=== PATIENT | female | born 1975 | race Caucasian/White ===

== ENCOUNTER 2020-11-29 16:47 | Emergency (ER) | payer OTHER ==
[2020-11-29] MEDS ORDERED: Adenocard IV 6 MG/2 ML IV ONE ×3 (16:51→17:00)
[2020-11-29] MEDS ORDERED: Sodium Chloride 0.9% 1000 ML 1,000 ML ONE (16:52)
[2020-11-29] MEDS ORDERED: Zofran 4 MG/2 ML VIAL IV ONE (17:00)
[2020-11-29] MEDS ORDERED: Zofran 4 MG/2 ML VIAL ONE (17:02)
[2020-11-29] MEDS ORDERED: Sodium Chloride 0.9% 1000 ML 1,000 ML IV STA (17:10)
[2020-11-29 17:25] LABS: Basophil (Absolute #) 0.05 (0-0.4); Eosinophil (Absolute #) 0.26 (0-0.5); Hemoglobin 13.4 gm/dl (12.0-16.0); Lymphocyte (Absolute #) 1.67 (1.0-4.6); Lymphocytes % 32.2 % (24.0-44.0); Mean Cell Volume 92.9 fl (78-100); Mean Corpuscular Hemoglobin 29.6 pg (26-32); Mean Corpuscular Hgb Concent. 31.9 g/dl (32-36); Mean Platelet Volume 9.7 fl (7.5-11.0); Monocytes % 11.6 % (0.0-12.0); Neutrophil % 50.2 % (36.0-66.0); Platelet Count 637 K/mm3 (150-450); Red Blood Count 4.52 M/mm3 (4.1-5.4); Red Cell Distribution Width 13.9 % (11.5-14.0); White Blood Count 5.2 K/mm3 (4.0-10.5)
--- NOTE | 2020-11-29 17:26 | ERPHSYRPT ---
- History of Present Illness Source: patient Exam Limitations: no limitations Patient Subjective Stated Complaint: SVT Triage Nursing Assessment: Patient brought back to ED via w/c and transferred to bed per self. Patient A+O X3. Patient's skin pink, warm and dry. Patient complains of being in SVT. Patient has hx of SVT. Patient states her HR got 209 and has been elevated for 15 min prior to coming into ED. Patient denies pain or discomfort but complains of slight SOB. Patient has recent colostomy placed on November 07 due to ruptured diverticolisis. Patient states her pain medication is interacting with her Cardizem and she has held it for 2 weeks. Timing/Duration: today, sudden, worse Severity: moderate Modifying Factors: Improves With: nothing Associated Symptoms: shortness of breath Hx Influenza Vaccination/Date Given: Yes Hx Pneumococcal Vaccination/Date Given: No Immunizations Up to Date: Yes <EMMANUEL PAEZ - Last Filed: 11/29/20 18:49> <NELSON GAINES - Last Filed: 11/29/20 20:46> - History of Present Illness Time Seen by Provider: 11/29/20 17:03 Physician History: 45 years old female with history of SVTs presented in the ER with sudden onset palpitations almost 15 minutes prior to arrival. Continuous without any significant aggravating or relieving factors. Minimal shortness of breath because of palpitations. Patient report her heart rate was in 200s prior to arrival and improved to 185 on presentation. She denies any fever or chills. Patient recently was taken off of Cardizem because of interaction with pain medications. She restarted taking Cardizem yesterday. Denies any fever chills or chest pain. Reports having similar symptoms couple of times in the past where she had to go to the ER to get adenosine to abort it. She is feeling pretty fatigued and tired. She recently have ruptured diverticulitis with temporary colostomy done. (EMMANUEL PAEZ) Allergies/Adverse Reactions: No Known Drug Allergies Allergy (Unverified 11/29/20 17:30) Home Medications: Diltiazem HCl [Diltiazem 12Hr ER] 1 cap PO DAILY 11/29/20 [History] Hydrocodone/Acetaminophen [Hydrocodone-Acetamin 7.5-325] 1 tab PO BID PRN 11/29/20 [History] Travel Risk - International Travel Have you traveled outside of the country in past 3 weeks: No - Coronavirus Screening Are you exhibiting any of the following symptoms?: No Close contact with a COVID-19 positive Pt in past 14-21 Days: No - Vaccine Status Have you recieved a Covid-19 vaccination: No <EMMANUEL PAEZ - Last Filed: 11/29/20 18:49> - Review of Systems Constitutional: No Symptoms, Fatigue Eyes: No Symptoms Ears, Nose, & Throat: No Symptoms Respiratory: No Symptoms, Dyspnea Cardiac: Palpitations Abdominal/Gastrointestinal: No Symptoms Genitourinary Symptoms: No Symptoms Musculoskeletal: No Symptoms Skin: No Symptoms Neurological: No Symptoms Psychological: Anxiety Endocrine: No Symptoms Hematologic/Lymphatic: No Symptoms Immunological/Allergic: No Symptoms <EMMANUEL PAEZ - Last Filed: 11/29/20 18:49> - Past Medical History Pertinent Past Medical History: Yes Neurological History: No Pertinent History ENT History: No Pertinent History Cardiac History: No Pertinent History Respiratory History: No Pertinent History Endocrine Medical History: No Pertinent History Musculoskeletal History: No Pertinent History GI Medical History: Diverticulosis History: No Pertinent History Psycho-Social History: No Pertinent History Female Reproductive Disorders: No Pertinent History Other Medical History: hx of SVT. Diverticulitist with perforation with colostomy placement on 11/07/2020 - Past Surgical History Past Surgical History: Yes Neuro Surgical History: No Pertinent History Cardiac: No Pertinent History Respiratory: No Pertinent History Gastrointestinal: Colon Resection Genitourinary: No Pertinent History Musculoskeletal: No Pertinent History Female Surgical History: No Pertinent History Other Surgical History: Diverticulitist with perforation with colostomy placement on 11/07/2020 - Social History Smoking Status: Former smoker Exposure to second hand smoke: Yes Drug Use: none Patient Lives Alone: No - Female History Hx Now: No <EMMANUEL PAEZ - Last Filed: 11/29/20 18:49> - Physical Exam General Appearance: mild distress, alert, anxiety Eye Exam: PERRL/EOMI, eyes nml inspection Ears, Nose, Throat Exam: normal ENT inspection, TMs normal, pharynx normal Neck Exam: normal inspection, non-tender, supple, full range of motion Respiratory Exam: normal breath sounds, lungs clear Cardiovascular Exam: normal heart sounds, tachycardia Gastrointestinal/Abdomen Exam: soft, normal bowel sounds, No tenderness Back Exam: normal inspection, normal range of motion Extremity Exam: normal inspection, normal range of motion, pelvis stable Neurologic Exam: alert, oriented x 3, cooperative, technical business analyst II-XII nml as tested Skin Exam: normal color SpO2 Interpretation: normal SpO2: 96 O2 Delivery: Room Air <EMMANUEL APEZ - Last Filed: 11/29/20 18:49> - Nursing Vital Signs Nursing Vital Signs: Initial Vital Signs Temperature 97.7 F 11/29/20 16:52 Pulse Rate 186 H 11/29/20 16:52 Respiratory Rate 21 11/29/20 16:52 Blood Pressure 93/79 11/29/20 16:52 O2 Sat by Pulse Oximetry 100 11/29/20 16:52 Pain Scale Pain Intensity 0 - Course Nursing assessment & vital signs reviewed: Yes EKG Interpreted by Me: RATE ([id number]), SVT, NORMAL AXIS, Non-specific ST Changes - Radiology Exams Chest X-ray Interpretation: Reviewed by me, Negative - CT Exams Other CT Interpretation: Other (Mall nonoccluding peripheral pulmonary embolus left upper lobe) Abdomen/Pelvis CT Interpretation: Other (No acute changes seen on the CT of the abdomen and pelvis with contrast other than surgical changes) <NELSON GAINES - Last Filed: 11/29/20 20:46> Ordered Tests: Active Orders 24 hr Category Date Time Status Medical Assistant Cardiology STAT Care 11/29/20 17:11 Active EKG-ER Only STAT Care 11/29/20 17:10 Active IV Insertion STAT Care 11/29/20 17:10 Active Pulse Oximetry (ED) STAT Care 11/29/20 17:10 Active ABDOMEN AND PELVIS W CONTRAST [CT] Routine Exams 11/29/20 19:05 Completed CHEST 1 VIEW (PORTABLE) Stat Exams 11/29/20 17:11 Completed CHEST WITH CONTRAST [CT] Routine Exams 11/29/20 19:05 Completed CBC W DIFF Stat Lab 11/29/20 16:58 Completed CK-Creatinine Phosphokinase Stat Lab 11/29/20 16:58 Completed CMP Stat Lab 11/29/20 16:58 Completed D-DIMER QUANTITATIVE Stat Lab 11/29/20 16:58 Completed Hepatic Function Panel Stat Lab 11/29/20 16:58 Completed NT PRO BNP Stat Lab 11/29/20 16:58 Completed PROTIME WITH INR Stat Lab 11/29/20 16:58 Completed PTT Stat Lab 11/29/20 16:58 Completed TROPONIN Q3H Lab 11/29/20 17:15 Completed TROPONIN Q3H Lab 11/29/20 20:15 Received TROPONIN Q3H Lab 11/29/20 23:15 Ordered TROPONIN Q3H Lab 11/30/20 02:15 Ordered TROPONIN Q3H Lab 11/30/20 05:15 Ordered Urine Triage Profile Stat Lab 11/29/20 16:58 Completed Medication Summary Discontinued Medications Generic Name Dose Route Start Last Admin Trade Name Freq PRN Reason Stop Dose Admin Adenosine Confirm 11/29/20 16:51 Adenocard Iv 6 Mg/2 Ml Administered 11/29/20 16:52 Dose 6 mg IV .STK-MED ONE Adenosine Confirm 11/29/20 16:52 Adenocard Iv 6 Mg/2 Ml Administered 11/29/20 16:53 Dose 12 mg IV .STK-MED ONE Adenosine 6 mg 11/29/20 17:00 11/29/20 17:05 Adenocard Iv 6 Mg/2 Ml IV 11/29/20 17:01 6 mg STAT ONE Administration Enoxaparin Sodium 80 mg 11/29/20 20:37 Enoxaparin Sodium SQ 11/29/20 20:38 1XONLY ONE Enoxaparin Sodium Confirm 11/29/20 20:39 Enoxaparin Sodium Administered 11/29/20 20:40 Dose 80 mg SQ .STK-MED ONE Sodium Chloride Confirm 11/29/20 16:52 Sodium Chloride 0.9% 1000 Ml Administered 11/29/20 16:53 Dose 1,000 mls @ ud .ROUTE .STK-MED ONE Sodium Chloride 1,000 mls @ 999 mls/hr 11/29/20 17:10 11/29/20 18:28 Sodium Chloride 0.9% 1000 Ml IV 11/29/20 18:10 Infused .Q1H1M STA Infusion Ondansetron HCl Confirm 11/29/20 17:02 Zofran 4 Mg/2 Ml Vial Administered 11/29/20 17:03 Dose 4 mg .ROUTE .STK-MED ONE Ondansetron HCl 4 mg 11/29/20 17:00 11/29/20 17:00 Zofran 4 Mg/2 Ml Vial IV 04/23/21 17:01 4 mg STAT ONE Administration Lab/Rad Data: Laboratory Result Diagrams 11/29/20 16:58 11/29/20 16:58 Laboratory Results 11/29/20 11/29/20 11/29/20 Range/Units 17:15 16:58 16:58 WBC (4.0-10.5) K/mm3 RBC (4.1-5.4) M/mm3 Hgb (12.0-16.0) gm/dl Hct (35-47) % MCV (78-100) fl MCH (26-32) pg MCHC (32-36) g/dl RDW (11.5-14.0) % Plt Count (150-450) K/mm3 MPV (7.5-11.0) fl Gran % (36.0-66.0) % Eos # (Auto) (0-0.5) Absolute Lymphs (auto) (1.0-4.6) Absolute Monos (auto) (0.0-1.3) Lymphocytes % (24.0-44.0) % Monocytes % (0.0-12.0) % Eosinophils % (0.00-5.0) % Basophils % (0.0-0.4) % Absolute Granulocytes (1.4-6.9) Basophils # (0-0.4) PT 11.8 (9.95-12.35) SECONDS INR 1.04 (0.8-3.0) APTT 30.5 (25.3-37.0) SECONDS D-Dimer 1001 H* (215-500) ng/mL Sodium (137-145) mmol/L Potassium (3.5-5.1) mmol/L Chloride (98-107) mmol/L Carbon Dioxide (22-30) mmol/L Anion Gap (5-15) MEQ/L BUN (7-17) mg/dL Creatinine (0.52-1.04) mg/dL Estimated GFR ML/MIN Glucose (74-106) mg/dL Calcium (8.4-10.2) mg/dL Total Bilirubin (0.2-1.3) mg/dL Direct Bilirubin (0.0-0.4) mg/dL AST (14-36) U/L ALT (0-35) U/L Alkaline Phosphatase (38-126) U/L Creatine Kinase (30-135) U/L Troponin I < 0.012 (0.000-0.034) ng/mL NT-Pro-B Natriuret Pep (0-450) pg/mL Serum Total Protein (6.3-8.2) g/dL Albumin (3.5-5.0) g/dL Urine Opiates Level POSITIVE (NEGATIVE) Ur Methadone NEGATIVE (NEGATIVE) Urine Barbiturates NEGATIVE (NEGATIVE) Ur Phencyclidine (PCP) NEGATIVE (NEGATIVE) Urine Amphetamine NEGATIVE (NEGATIVE) U Benzodiazepine Level NEGATIVE (NEGATIVE) Urine Cocaine NEGATIVE (NEGATIVE) Urine Marijuana (THC) NEGATIVE (NEGATIVE) 11/29/20 11/29/20 Range/Units 16:58 16:58 WBC 5.2 (4.0-10.5) K/mm3 RBC 4.52 (4.1-5.4) M/mm3 Hgb 13.4 (12.0-16.0) gm/dl Hct 42.0 (35-47) % MCV 92.9 (78-100) fl MCH 29.6 (26-32) pg MCHC 31.9 L (32-36) g/dl RDW 13.9 (11.5-14.0) % Plt Count 637 H (150-450) K/mm3 MPV 9.7 (7.5-11.0) fl Gran % 50.2 (36.0-66.0) % Eos # (Auto) 0.26 (0-0.5) Absolute Lymphs (auto) 1.67 (1.0-4.6) Absolute Monos (auto) 0.60 (0.0-1.3) Lymphocytes % 32.2 (24.0-44.0) % Monocytes % 11.6 (0.0-12.0) % Eosinophils % 5.0 (0.00-5.0) % Basophils % 1.0 (0.0-0.4) % Absolute Granulocytes 2.60 (1.4-6.9) Basophils # 0.05 (0-0.4) PT (9.95-12.35) SECONDS INR (0.8-3.0) APTT (25.3-37.0) SECONDS D-Dimer (215-500) ng/mL Sodium 140 (137-145) mmol/L Potassium 3.9 (3.5-5.1) mmol/L Chloride 100 (98-107) mmol/L Carbon Dioxide 27 (22-30) mmol/L Anion Gap 16.5 H (5-15) MEQ/L BUN 9 (7-17) mg/dL Creatinine 0.58 (0.52-1.04) mg/dL Estimated GFR > 60.0 ML/MIN Glucose 100 (74-106) mg/dL Calcium 10.3 H (8.4-10.2) mg/dL Total Bilirubin 0.40 (0.2-1.3) mg/dL Direct Bilirubin 0.2 (0.0-0.4) mg/dL AST 47 H (14-36) U/L ALT 45 H (0-35) U/L Alkaline Phosphatase 96 (38-126) U/L Creatine Kinase 31 (30-135) U/L Troponin I (0.000-0.034) ng/mL NT-Pro-B Natriuret Pep 22.4 (0-450) pg/mL Serum Total Protein 8.2 (6.3-8.2) g/dL Albumin 4.8 (3.5-5.0) g/dL Urine Opiates Level (NEGATIVE) Ur Methadone (NEGATIVE) Urine Barbiturates (NEGATIVE) Ur Phencyclidine (PCP) (NEGATIVE) Urine Amphetamine (NEGATIVE) U Benzodiazepine Level (NEGATIVE) Urine Cocaine (NEGATIVE) Urine Marijuana (THC) (NEGATIVE) <EMMANUEL PAEZ - Last Filed: 11/29/20 18:49> - Progress Progress: improved <NELSON GAINES - Last Filed: 11/29/20 20:46> - Progress Progress Note: 11/29/20 18:49 She is given adenosine 6 mg once since she has improvement in heart rate to upper 90s and low 100. Her blood pressure also improved. Repeat EKG showed sinus tach. No acute ST elevation. Work-up is pending, care is transferred to Dr. Gaines at shift change for final disposition. (EMMANUEL PAEZ) 11/29/20 20:43 We had a long discussion with Ms. Espinoza about her SVT and her subsequent finding of a nonocclusive small pulmonary embolus. We elected to treat her with Lovenox and then she can start Eliquis in the morning she is to contact her surgeon and primary care in the a.m. to see if they are in agreement with her current therapy. (NELSON GAINES) <EMMANUEL PAEZ - Last Filed: 11/29/20 18:49> - Departure Departure Disposition: Home Critical Care Time: No <NELSON GAINES - Last Filed: 11/29/20 20:46> - Departure Clinical Impression: SVT (supraventricular tachycardia), Pulmonary emboli Condition: Stable Referrals: ROGER ESCALERA [NON-STAFF PHY W/O PRIVILEGES] - Additional Instructions: Contact your surgeon and your primary care in the a.m. and tell them of your findings and our treatment to see if they concur. Prescriptions: Apixaban [Eliquis] 5 mg PO BID 30 Days #60 tablet
[2020-11-29 17:30] LABS: INR 1.04 (0.8-3.0); PROTIME 11.8 SECONDS (9.95-12.35)
[2020-11-29 17:33] LABS: PTT 30.5 SECONDS (25.3-37.0)
[2020-11-29 17:45] LABS: ALBUMIN 4.8 g/dL (3.5-5.0); ALKALINE PHOSPHATASE 96 U/L (38-126); ANION GAP 16.5 MEQ/L (5-15); BLOOD UREA NITROGEN 9 mg/dL (7-17); CHLORIDE 100 mmol/L (98-107); CK-Creatinine Phosphokinase 31 U/L (30-135); Calcium 10.3 mg/dL (8.4-10.2); Carbon Dioxide 27 mmol/L (22-30); Creatinine 1 0.58 mg/dL (0.52-1.04); Direct Bilirubin 0.2 mg/dL (0.0-0.4); EST GLOMERULAR FILTRATION RATE > 60.0 ML/MIN; Glucose 100 mg/dL (74-106); NT PRO BNP 22.4 pg/mL (0-450); Potassium 3.9 mmol/L (3.5-5.1); SGOT/AST 47 U/L (14-36); SGPT/ALT 45 U/L (0-35); SODIUM 140 mmol/L (137-145); Total Protein 8.2 g/dL (6.3-8.2)
[2020-11-29 17:56] LABS: Amphetamine,Urine NEGATIVE (NEGATIVE); Barbiturate,Urine NEGATIVE (NEGATIVE); Benzodiazepine,Urine NEGATIVE (NEGATIVE); Cocaine,Urine NEGATIVE (NEGATIVE); Methadone,Urine NEGATIVE (NEGATIVE); Opiate,Urine POSITIVE (NEGATIVE); PCP,Urine NEGATIVE (NEGATIVE); THC,Urine NEGATIVE (NEGATIVE)
--- NOTE | 2020-11-29 20:00 | XRAY ---
Indication: SVT. Elevated d-dimer. Multiple contiguous axial images obtained through the chest using 80 cc Isovue 370 contrast and PE protocol. Comparison: None There is good opacification of the pulmonary arteries to include the lobar and segmental branches. Tiny nonoccluding pulmonary embolus right upper lobe anterior segmental branch. Heart is not enlarged. Aorta is normal in course and caliber. No pathologic mediastinal/hilar lymphadenopathy. Lungs demonstrate mild bilateral dependent atelectasis and mild bilateral lower lobe subsegmental atelectasis/scarring. No suspicious pulmonary mass, infiltrate, or effusion. Bony thorax intact. CT abdomen/pelvis reported separately. Impression: Tiny nonoccluding right upper lobe pulmonary embolus. Bibasilar subsegmental atelectasis/scarring. Remaining CT chest with contrast exam is negative.
--- NOTE | 2020-11-29 20:01 | XRAY ---
Indication: Abdomen pain. History diverticulitis with colon resection. Multiple contiguous axial images obtained through the abdomen and pelvis using 80 cc Isovue 370 contrast. Comparison: None CT chest reported separately. Noncontrasted stomach and bowel loops appear nonobstructed. Small descending duodenal diverticulum. Scattered descending colon diverticulosis with minimal pericolonic stranding favoring diverticulitis. Tiny left colic gutter and pelvic free fluid presumed reactive. There has been sigmoid resection with diverting left lower quadrant colostomy. No free air. Diffuse fatty hepatomegaly measuring 19 cm. Remaining gallbladder, pancreas, spleen, adrenal glands, kidneys, ureters, bladder, uterus, and aorta are unremarkable. No pathologic retroperitoneal lymphadenopathy. Osseous structures intact with bilateral L5 spondylolysis and 9 mm spondylolisthesis. Impression: 1. Descending colonic diverticulitis with tiny free fluid. 2. Status post sigmoid resection with diverting left lower quadrant colostomy. 3. Incidental duodenal diverticulum, fatty hepatomegaly, and L5 spondylolysis with grade 2 spondylolisthesis.
--- NOTE | 2020-11-29 20:01 | XRAY ---
Indication: Tachycardia. Comparison: None Portable chest demonstrates normal heart and lungs. Bony thorax intact.
[2020-11-29] MEDS ORDERED: ENOXAPARIN SODIUM SQ ONE ×2 (20:37→20:39)
[2020-11-29 20:52] VITALS: BP 127/85; PULSE 93; O2SAT 99
== END 2020-11-29 20:58 | disposition home or self-care (01) ==
LOC: ED 16:47
DX: I47.1 Supraventricular tachycardia (principal); I26.99 Other pulmonary embolism without acute cor pulmonale
CPT/HCPCS: 36000; 36415; 71045; 71260; 74177; 80053; 80076; 80307; 82550; 83880; 84484; 85025; 85379; 85610; 85730; 93005; 93041; 94760; 96372; 96374; 96375; 99284; J0153; J1650; J2405

== ENCOUNTER 2020-12-04 18:02 | Emergency (ER) | payer OTHER ==
[2020-12-04] MEDS ORDERED: Adenocard IV 6 MG/2 ML IV ONE ×2 (18:12→18:13)
[2020-12-04] MEDS ORDERED: Sodium Chloride 0.9% 1000 ML 1,000 ML ONE ×2 (18:13→19:25)
[2020-12-04] MEDS ORDERED: Zofran 4 MG/2 ML VIAL ONE (18:14)
[2020-12-04] MEDS ORDERED: BABY ASPIRIN 81 MG CHEW PO ONE (18:36)
[2020-12-04] MEDS ORDERED: Sodium Chloride 0.9% 1000 ML 1,000 ML IV STA (18:36)
--- NOTE | 2020-12-04 18:36 | ERPHSYRPT ---
- History of Present Illness Time Seen by Provider: 12/04/20 18:03 Source: patient Exam Limitations: no limitations Patient Subjective Stated Complaint: SVT Triage Nursing Assessment: Patient brought back to ED via w/c and transferred self to bed. Patient A+O X 3. Patient's skin flushed and diaphoretic. Patient states she was sitting at home when her HR got to high to 194 and stayed for 30 min before coming into ED. Patient complains of dizziness and SOB. Patient denies pain or discomfort. Physician History: 45 years old female with a history of SVT, recent nonoccluding pulmonary emboli, on Eliquis, presented to the ER with chief complaint of sudden onset palpitations almost 30 minutes prior to arrival with a heart rate in 190s. Patient reports feeling dizzy and lightheaded with palpitations. Denies any ch est pain tightness pressure. Patient was seen here by me few days ago with similar symptoms which responded to adenosine. Patient is not taking any antiarrhythmic but Cardizem only. Denies any recent fever chills cough or shortness of breath. Timing/Duration: today, sudden Severity: moderate Modifying Factors: Worsens With: movement Associated Symptoms: denies symptoms Allergies/Adverse Reactions: No Known Drug Allergies Allergy (Verified 12/04/20 18:10) Home Medications: Diltiazem HCl [Diltiazem 12Hr ER] 1 cap PO DAILY 11/29/20 [History] Hydrocodone/Acetaminophen [Hydrocodone-Acetamin 7.5-325] 1 tab PO BID PRN 11/29/20 [History] Apixaban [Eliquis] 2.5 mg PO DAILY 12/04/20 [History] Hx Influenza Vaccination/Date Given: Yes Hx Pneumococcal Vaccination/Date Given: No Immunizations Up to Date: Yes Travel Risk - International Travel Have you traveled outside of the country in past 3 weeks: No - Coronavirus Screening Are you exhibiting any of the following symptoms?: No Close contact with a COVID-19 positive Pt in past 14-21 Days: No - Vaccine Status Have you recieved a Covid-19 vaccination: No - Review of Systems Constitutional: Fatigue Eyes: No Symptoms Ears, Nose, & Throat: No Symptoms Respiratory: No Symptoms Cardiac: Palpitations Abdominal/Gastrointestinal: No Symptoms Genitourinary Symptoms: No Symptoms Musculoskeletal: No Symptoms Skin: No Symptoms Neurological: Dizziness Psychological: No Symptoms Endocrine: No Symptoms Hematologic/Lymphatic: No Symptoms Immunological/Allergic: No Symptoms - Past Medical History Pertinent Past Medical History: Yes Neurological History: No Pertinent History ENT History: No Pertinent History Cardiac History: No Pertinent History Respiratory History: No Pertinent History Endocrine Medical History: No Pertinent History Musculoskeletal History: No Pertinent History GI Medical History: Diverticulosis History: No Pertinent History Psycho-Social History: No Pertinent History Female Reproductive Disorders: No Pertinent History Other Medical History: hx of SVT. Diverticulitist with perforation with colostomy placement on 11/07/2020 - Past Surgical History Past Surgical History: Yes Neuro Surgical History: No Pertinent History Cardiac: No Pertinent History Respiratory: No Pertinent History Gastrointestinal: Colon Resection Genitourinary: No Pertinent History Musculoskeletal: No Pertinent History Female Surgical History: No Pertinent History Other Surgical History: Diverticulitist with perforation with colostomy placement on 11/07/2020 - Social History Smoking Status: Former smoker Exposure to second hand smoke: Yes Drug Use: none Patient Lives Alone: No - Female History Hx Now: No - Nursing Vital Signs Nursing Vital Signs: Initial Vital Signs Pulse Rate 182 H 12/04/20 18:15 Respiratory Rate 33 H 12/04/20 18:15 Blood Pressure 98/72 12/04/20 18:15 O2 Sat by Pulse Oximetry 100 12/04/20 18:15 Pain Scale Pain Intensity 0 - Physical Exam General Appearance: no apparent distress, alert, anxiety Eye Exam: PERRL/EOMI, eyes nml inspection Ears, Nose, Throat Exam: normal ENT inspection, TMs normal, pharynx normal Neck Exam: normal inspection, non-tender, supple Respiratory Exam: normal breath sounds, lungs clear Cardiovascular Exam: normal heart sounds, tachycardia Gastrointestinal/Abdomen Exam: soft, normal bowel sounds, No tenderness Back Exam: normal inspection, normal range of motion Extremity Exam: normal inspection, normal range of motion, pelvis stable Neurologic Exam: alert, oriented x 3, cooperative, advertising sales consultant II-XII nml as tested, nml cerebellar function Skin Exam: normal color SpO2 Interpretation: normal SpO2: 100 O2 Delivery: Room Air - Course EKG Interpreted by Me: RATE ([id number]), SVT, NORMAL AXIS, NORMAL INTERVALS, Non- specific ST Changes (Second EKG time 1820. Rate 92. Sinus rhythm Driscoll normal. Intervals normal. Normal QRS. Third EKG time 1931. Rate 89 sinus rhythm. Normal axis. No ST elevations. Normal QRS.) Ordered Tests: Active Orders 24 hr Category Date Time Status Casino Change Attendant STAT Care 12/04/20 18:37 Active EKG-ER Only STAT Care 12/04/20 18:36 Active IV Insertion STAT Care 12/04/20 18:36 Active CHEST 1 VIEW (PORTABLE) Stat Exams 12/04/20 18:37 Taken CBC W DIFF Stat Lab 12/04/20 18:54 Completed CMP Stat Lab 12/04/20 18:54 Completed MAG [MAGNESIUM] Stat Lab 12/04/20 18:54 Completed TROPONIN Q3H Lab 12/04/20 18:54 Completed TROPONIN Q3H Lab 12/05/20 00:45 Ordered TROPONIN Q3H Lab 12/05/20 03:45 Ordered TROPONIN Q3H Lab 12/05/20 06:45 Ordered Medication Summary Discontinued Medications Generic Name Dose Route Start Last Admin Trade Name Freq PRN Reason Stop Dose Admin Adenosine Confirm 12/04/20 18:12 Adenocard Iv 6 Mg/2 Ml Administered 12/04/20 18:13 Dose 6 mg IV .STK-MED ONE Adenosine Confirm 12/04/20 18:13 Adenocard Iv 6 Mg/2 Ml Administered 12/04/20 18:14 Dose 12 mg IV .STK-MED ONE Aspirin 324 mg 12/04/20 18:36 12/04/20 19:26 Baby Aspirin 81 Mg Chew PO 12/04/20 18:37 324 mg STAT ONE Administration Aspirin Confirm 12/04/20 19:25 Baby Aspirin 81 Mg Chew Administered 12/04/20 19:26 Dose 324 mg .ROUTE .STK-MED ONE Sodium Chloride Confirm 12/04/20 18:13 Sodium Chloride 0.9% 1000 Ml Administered 12/04/20 18:14 Dose 1,000 mls @ ud .ROUTE .STK-MED ONE Sodium Chloride 1,000 mls @ 999 mls/hr 12/04/20 18:36 12/04/20 20:53 Sodium Chloride 0.9% 1000 Ml IV 12/04/20 19:36 Infused .Q1H1M STA Infusion Sodium Chloride Confirm 12/04/20 19:25 Sodium Chloride 0.9% 1000 Ml Administered 12/04/20 19:26 Dose 1,000 mls @ ud .ROUTE .STK-MED ONE Ondansetron HCl Confirm 12/04/20 18:14 Zofran 4 Mg/2 Ml Vial Administered 12/04/20 18:15 Dose 4 mg .ROUTE .STK-MED ONE Lab/Rad Data: Laboratory Result Diagrams 12/04/20 18:54 12/04/20 18:54 Laboratory Results 12/04/20 12/04/20 12/04/20 Range/Units 18:54 18:54 18:54 WBC (4.0-10.5) K/mm3 RBC (4.1-5.4) M/mm3 Hgb (12.0-16.0) gm/dl Hct (35-47) % MCV (78-100) fl MCH (26-32) pg MCHC (32-36) g/dl RDW (11.5-14.0) % Plt Count (150-450) K/mm3 MPV (7.5-11.0) fl Gran % (36.0-66.0) % Eos # (Auto) (0-0.5) Absolute Lymphs (auto) (1.0-4.6) Absolute Monos (auto) (0.0-1.3) Lymphocytes % (24.0-44.0) % Monocytes % (0.0-12.0) % Eosinophils % (0.00-5.0) % Basophils % (0.0-0.4) % Absolute Granulocytes (1.4-6.9) Basophils # (0-0.4) Sodium 139 (137-145) mmol/L Potassium 4.0 (3.5-5.1) mmol/L Chloride 101 (98-107) mmol/L Carbon Dioxide 26 (22-30) mmol/L Anion Gap 15.6 H (5-15) MEQ/L BUN 11 (7-17) mg/dL Creatinine 0.54 (0.52-1.04) mg/dL Estimated GFR > 60.0 ML/MIN Glucose 86 (74-106) mg/dL Calcium 10.0 (8.4-10.2) mg/dL Magnesium 2.1 (1.6-2.3) mg/dL Total Bilirubin 0.40 (0.2-1.3) mg/dL AST 57 H (14-36) U/L ALT 50 H (0-35) U/L Alkaline Phosphatase 91 (38-126) U/L Troponin I < 0.012 (0.000-0.034) ng/mL Serum Total Protein 7.9 (6.3-8.2) g/dL Albumin 4.6 (3.5-5.0) g/dL 12/04/20 Range/Units 18:54 WBC 7.1 (4.0-10.5) K/mm3 RBC 4.44 (4.1-5.4) M/mm3 Hgb 13.0 (12.0-16.0) gm/dl Hct 41.2 (35-47) % MCV 92.8 (78-100) fl MCH 29.3 (26-32) pg MCHC 31.6 L (32-36) g/dl RDW 13.6 (11.5-14.0) % Plt Count 512 H (150-450) K/mm3 MPV 10.2 (7.5-11.0) fl Gran % 56.9 (36.0-66.0) % Eos # (Auto) 0.25 (0-0.5) Absolute Lymphs (auto) 2.11 (1.0-4.6) Absolute Monos (auto) 0.64 (0.0-1.3) Lymphocytes % 29.9 (24.0-44.0) % Monocytes % 9.1 (0.0-12.0) % Eosinophils % 3.5 (0.00-5.0) % Basophils % 0.6 (0.0-0.4) % Absolute Granulocytes 4.01 (1.4-6.9) Basophils # 0.04 (0-0.4) Sodium (137-145) mmol/L Potassium (3.5-5.1) mmol/L Chloride (98-107) mmol/L Carbon Dioxide (22-30) mmol/L Anion Gap (5-15) MEQ/L BUN (7-17) mg/dL Creatinine (0.52-1.04) mg/dL Estimated GFR ML/MIN Glucose (74-106) mg/dL Calcium (8.4-10.2) mg/dL Magnesium (1.6-2.3) mg/dL Total Bilirubin (0.2-1.3) mg/dL AST (14-36) U/L ALT (0-35) U/L Alkaline Phosphatase (38-126) U/L Troponin I (0.000-0.034) ng/mL Serum Total Protein (6.3-8.2) g/dL Albumin (3.5-5.0) g/dL - Progress Progress: improved, re-examined Progress Note: 12/04/20 20:16 She is given 6 mg adenosine and converted to normal sinus rhythm. She is taking Eliquis. Initial work-up is negative. Recommended observation admission or transfer to facility with cardiology services because of repeated presentation with similar symptoms. She does not want to go to the hospital now and would follow-up with emergency room tech outpatient. Discussed signs symptoms of worsening needing return to ER which she seems understanding. Stable for discharge. Counseled pt/family regarding: lab results, diagnosis, need for follow-up, rad results - Departure Departure Disposition: Home Clinical Impression: SVT (supraventricular tachycardia) Condition: Stable Critical Care Time: Yes Critical Care Time(excluding separately billable procedures): Critical 30-74 mins Referrals: TRENT MAYO NP [Primary Care Provider] - (1-2 days for reevaluation) LIT DICKENS MD [NON-STAFF PHY W/O PRIVILEGES] - (1-2 days for reevaluation) Instructions: Supraventricular Tachycardia (SVT) Additional Instructions: Follow-up with primary care and cardiology for reevaluation. Return to ER for worsening/recurrence of palpitations/SVT attack. Prescriptions: Magnesium Oxide 400 mg [Mag-Ox 400] 400 mg PO BID 30 Days #60 tablet
[2020-12-04 18:59] LABS: Absolute Neutrophil Ct (ANC) 4.01 (1.4-6.9); BASOPHIL % 0.6 % (0.0-0.4); Basophil (Absolute #) 0.04 (0-0.4); Eosinophil % 3.5 % (0.00-5.0); Eosinophil (Absolute #) 0.25 (0-0.5); Hematocrit 41.2 % (35-47); Lymphocyte (Absolute #) 2.11 (1.0-4.6); Lymphocytes % 29.9 % (24.0-44.0); Mean Cell Volume 92.8 fl (78-100); Mean Corpuscular Hemoglobin 29.3 pg (26-32); Mean Corpuscular Hgb Concent. 31.6 g/dl (32-36); Mean Platelet Volume 10.2 fl (7.5-11.0); Monocyte (Absolute #) 0.64 (0.0-1.3); Monocytes % 9.1 % (0.0-12.0); Neutrophil % 56.9 % (36.0-66.0); Platelet Count 512 K/mm3 (150-450); Red Blood Count 4.44 M/mm3 (4.1-5.4); Red Cell Distribution Width 13.6 % (11.5-14.0); White Blood Count 7.1 K/mm3 (4.0-10.5)
[2020-12-04 19:06] LABS: ALBUMIN 4.6 g/dL (3.5-5.0); ALKALINE PHOSPHATASE 91 U/L (38-126); ANION GAP 15.6 MEQ/L (5-15); BLOOD UREA NITROGEN 11 mg/dL (7-17); CHLORIDE 101 mmol/L (98-107); Carbon Dioxide 26 mmol/L (22-30); Creatinine 1 0.54 mg/dL (0.52-1.04); EST GLOMERULAR FILTRATION RATE > 60.0 ML/MIN; Glucose 86 mg/dL (74-106); SGOT/AST 57 U/L (14-36); SGPT/ALT 50 U/L (0-35); SODIUM 139 mmol/L (137-145); Total Protein 7.9 g/dL (6.3-8.2)
[2020-12-04] MEDS ORDERED: BABY ASPIRIN 81 MG CHEW ONE (19:25)
[2020-12-04 20:49] VITALS: BP 114/76; PULSE 88
[2020-12-04 21:02] VITALS: O2SAT 100
--- NOTE | 2020-12-05 08:54 | XRAY ---
Indication: Palpitations. Comparison: November 29, 2020. Portable apical lordotic chest underinflated and clear. Heart not enlarged. Bony thorax intact. No new/acute findings.
== END 2020-12-04 20:58 | disposition home or self-care (01) ==
LOC: ED 18:02
DX: I47.1 Supraventricular tachycardia (principal)
CPT/HCPCS: 36000; 36415; 71045; 80053; 83735; 84484; 85025; 93005; 93041; 96360; 99284; 99291; J0153; J2405; A9270-GY

== ENCOUNTER 2020-12-05 01:46 | Observation (INO) | payer OTHER ==
[2020-12-05] MEDS ORDERED: Zofran 4 MG/2 ML VIAL ONE (02:09)
[2020-12-05] MEDS ORDERED: Adenocard IV 6 MG/2 ML IV ONE ×2 (02:09→02:46)
[2020-12-05] MEDS ORDERED: Sodium Chloride 0.9% 1000 ML 1,000 ML ONE ×2 (02:09→06:25)
--- NOTE | 2020-12-05 02:30 | ERPHSYRPT ---
- History of Present Illness Time Seen by Provider: 12/05/20 02:26 Source: patient Exam Limitations: no limitations Patient Subjective Stated Complaint: pt states "I was sleeping and woke up short of breath." "My boyfriend checked my pulse and it was 194." Triage Nursing Assessment: pt ambulated into the er; pt is axo x4; c/o tachycardia; pt heart rate is 184 bpm; clear apical heart tone; apical heart rate is 176; pt states slight SOB; pt states that she was asleep when she woke up with SOB; pt states just left the hospital for SVT at 2140 on 12/04/20; pt states that she was given adenosin; pt states that heart rate got up to 194 at home; pt has no edema; strong grady radial pulses; strong grady pedal pulses; clear lung sounds in all lobes; hypotensive, SVT 176 Physician History: 45 years old female with history of paroxysmal SVT, anxiety, recent PE on Eliquis presented in the ER with sudden onset palpitations waking her up from sleep with associated mild shortness of breath. She checked her pulse and it was 194 with a pulse ox. She tried to bear down/well follow-up with no relief. Patient denies any chest pain pressure or tightness. No shortness of breath at present. Denies fever or chills. Patient was evaluated last night with similar symptoms and converted back to normal sinus rhythm, was discharged. Timing/Duration: today, sudden, worse Severity: moderate Modifying Factors: Improves With: nothing Associated Symptoms: denies symptoms Allergies/Adverse Reactions: No Known Drug Allergies Allergy (Verified 12/04/20 18:10) Home Medications: Diltiazem HCl [Diltiazem 12Hr ER] 1 cap PO DAILY 11/29/20 [History] Hydrocodone/Acetaminophen [Hydrocodone-Acetamin 7.5-325] 1 tab PO BID PRN 11/29/20 [History] Apixaban [Eliquis] 2.5 mg PO DAILY 12/04/20 [History] Hx Influenza Vaccination/Date Given: Yes Hx Pneumococcal Vaccination/Date Given: No Travel Risk - International Travel Have you traveled outside of the country in past 3 weeks: No - Coronavirus Screening Are you exhibiting any of the following symptoms?: No Close contact with a COVID-19 positive Pt in past 14-21 Days: No - Vaccine Status Have you recieved a Covid-19 vaccination: No - Review of Systems Constitutional: No Symptoms Eyes: No Symptoms Ears, Nose, & Throat: No Symptoms Respiratory: No Symptoms Cardiac: Palpitations Abdominal/Gastrointestinal: No Symptoms Genitourinary Symptoms: No Symptoms Musculoskeletal: No Symptoms Skin: No Symptoms Neurological: No Symptoms Psychological: Anxiety Endocrine: No Symptoms Hematologic/Lymphatic: No Symptoms Immunological/Allergic: No Symptoms - Past Medical History Pertinent Past Medical History: Yes Neurological History: No Pertinent History ENT History: No Pertinent History Cardiac History: No Pertinent History Respiratory History: No Pertinent History Endocrine Medical History: No Pertinent History Musculoskeletal History: No Pertinent History GI Medical History: Diverticulosis History: No Pertinent History Psycho-Social History: No Pertinent History Female Reproductive Disorders: No Pertinent History Other Medical History: hx of SVT. Diverticulitist with perforation with colostomy placement on 11/07/2020 - Past Surgical History Past Surgical History: Yes Neuro Surgical History: No Pertinent History Cardiac: No Pertinent History Respiratory: No Pertinent History Gastrointestinal: Colon Resection Genitourinary: No Pertinent History Musculoskeletal: No Pertinent History Female Surgical History: No Pertinent History Other Surgical History: Diverticulitist with perforation with colostomy placement on 11/07/2020 - Social History Smoking Status: Former smoker Exposure to second hand smoke: Yes Drug Use: none Patient Lives Alone: No - Female History Hx Now: No - Nursing Vital Signs Nursing Vital Signs: Initial Vital Signs Temperature 97.9 F 12/05/20 01:59 Pulse Rate 176 H 12/05/20 01:59 Respiratory Rate 20 12/05/20 01:59 Blood Pressure 85/66 12/05/20 01:59 O2 Sat by Pulse Oximetry 97 12/05/20 01:59 Pain Scale Pain Intensity 0 - Physical Exam General Appearance: no apparent distress, alert, anxiety Eye Exam: PERRL/EOMI, eyes nml inspection Ears, Nose, Throat Exam: normal ENT inspection, TMs normal, pharynx normal Neck Exam: normal inspection, non-tender, supple, full range of motion Respiratory Exam: normal breath sounds, lungs clear Cardiovascular Exam: normal heart sounds, tachycardia Gastrointestinal/Abdomen Exam: soft, normal bowel sounds Back Exam: normal inspection, normal range of motion Extremity Exam: normal inspection, normal range of motion Neurologic Exam: alert, oriented x 3, cooperative, caseworker intake II-XII nml as tested Skin Exam: normal color SpO2 Interpretation: normal SpO2: 99 O2 Delivery: Room Air - Course EKG Interpreted by Me: RATE (176), SVT, NORMAL AXIS, NORMAL INTERVALS, NORMAL QRS (Second EKG time 2:20 AM. Rate 92 sinus rhythm, normal axis, normal intervals, normal QRS, no ST and T wave changes) Ordered Tests: Medication Summary Discontinued Medications Generic Name Dose Route Start Last Admin Trade Name Silvia PRN Reason Stop Dose Admin Adenosine Confirm 12/05/20 02:09 Adenocard Iv 6 Mg/2 Ml Administered 12/05/20 02:10 Dose 6 mg IV .STK-MED ONE Sodium Chloride Confirm 12/05/20 02:09 Sodium Chloride 0.9% 1000 Ml Administered 12/05/20 02:10 Dose 1,000 mls @ ud .ROUTE .STK-MED ONE Ondansetron HCl Confirm 12/05/20 02:09 Zofran 4 Mg/2 Ml Vial Administered 12/05/20 02:10 Dose 4 mg .ROUTE .STK-MED ONE - Progress Progress: improved, re-examined Progress Note: 12/05/20 02:29 Patient is in SVT on presentation. Given fluid bolus along with 6 of adenosine, patient converted to normal sinus rhythm. This is her second visit in 12 hours. I have discussed with Dr. Retana and patient is being admitted. Patient has labs done tonight/last evening which was grossly unremarkable. Do not think she needs any other imaging or lab repeat again. Patient will be observed overnight and possible to be started on low-dose beta-sylwia upon discharge with outpatient cardiology follow-up. Discussed with : Maddy Will see patient in: hospital (observation) Counseled pt/family regarding: diagnosis - Departure Departure Disposition: Observation Clinical Impression: Paroxysmal SVT (supraventricular tachycardia) Condition: Stable Critical Care Time: No Referrals: TRENT MAYO NP [Primary Care Provider] -
[2020-12-05] MEDS ORDERED: Zofran 4 MG/2 ML VIAL IV ONE (02:46)
[2020-12-05] MEDS ORDERED: Sodium Chloride 0.9% 1000 ML 1,000 ML IV STA (02:46)
[2020-12-05 03:59] LABS: INFLUENZA A NEGATIVE (NEGATIVE); INFLUENZA B NEGATIVE (NEGATIVE); RESPIRATORY SYNCTIAL VIRUS NEGATIVE (Negative)
[2020-12-05] MEDS ORDERED: DUONEB 0.5-3 MG/3 ml Neb IH PRN (04:36)
[2020-12-05] MEDS ORDERED: TYLENOL 325 MG PO PRN (04:36)
[2020-12-05] MEDS ORDERED: Sodium Chloride 0.9% W/ 20 mEq KCl/LITER 1,000 ML IV SCH (04:36)
[2020-12-05] MEDS ORDERED: Zofran 4 MG/2 ML VIAL IV PRN (04:36)
[2020-12-05 07:32] VITALS: O2SAT 96
[2020-12-05] MEDS ORDERED: Mylicon 80MG PO PRN (09:24)
[2020-12-05] MEDS ORDERED: SIMETHICONE 125 MG PO SCH (09:30)
[2020-12-05] MEDS ORDERED: NORCO 7.5/325 MG TAB PO PRN (09:30)
[2020-12-05] MEDS ORDERED: Cardizem CD 120 MG PO SCH (10:00)
[2020-12-05] MEDS ORDERED: Colace 100 MG PO SCH (10:00)
[2020-12-05] MEDS ORDERED: Pepcid 20 MG VIAL IV SCH (10:00)
[2020-12-05] MEDS ORDERED: BUSPAR 5 MG PO SCH (10:00)
[2020-12-05] MEDS ORDERED: NON-FORMULARY ITEM (Apixaban [Eliquis] 2.5 MG) PO SCH (10:00)
[2020-12-05] MEDS ORDERED: MAG-OX 400 PO SCH (10:00)
[2020-12-05] MEDS ORDERED: DILTIAZEM HCL PO SCH (10:00)
[2020-12-05] MEDS ORDERED: ELIQUIS 2.5 MG TABLET PO SCH (10:00)
--- NOTE | 2020-12-05 14:37 | PCM.SSS ---
History of Present Illness - Chief Complaint Chief Complaint: Paroxysmal SVT History of Present Illness: is a 45 year old female seen and examined today following admission from ER for SVT. Patient reports this has been happening more frequently and she was just in the the ER last night for the same thing. She was given adenosine and it was resolved and she went home. She then woke up in the middle of the night and could feel her heart racing again. She came back to ER. She reports this was the 5th time she was given adenosine for SVT. She reports she sees Dr Witt and was told she needs to have ablation procedure done. She reports that she has not been taking the diltiazem she was prescribed due to potential interaction reported by pharmacist. She reports that she was taking it without issue in the hospital prior to DC from her abdominal procedures. Patient reports - Review of Systems Constitutional: No Fever Eyes: No Symptoms Ears, Nose, & Throat: No Symptoms Respiratory: No Cough, No Short Of Breath Cardiac: Palpitations, No Chest Pain, No Edema Abdominal/Gastrointestinal: Abdominal Pain, Constipation, Other (Patient has ostomy with firm stools. ), No Nausea, No Vomiting, No Diarrhea Genitourinary Symptoms: No Symptoms Musculoskeletal: No Symptoms Skin: No Symptoms Neurological: No Symptoms Psychological: Anxiety, No Alcohol Abuse, No Drug Abuse, No Depression Endocrine: No Symptoms Hematologic/Lymphatic: No Symptoms Medications & Allergies Home Medications: Home Medication List Diltiazem HCl [Diltiazem 12Hr ER] 1 cap PO DAILY 11/29/20 [History Confirmed 12/05/20] Hydrocodone/Acetaminophen [Hydrocodone-Acetamin 7.5-325] 1 tab PO BID PRN 11/29/20 [History Confirmed 12/05/20] Apixaban [Eliquis] 2.5 mg PO BID 12/04/20 [History Confirmed 12/05/20] Magnesium Oxide 400 mg [Mag-Ox 400] 400 mg PO BID 30 Days #60 tablet 12/04/20 [Rx Confirmed 12/05/20] Buspirone HCl 5 mg [Buspar 5 mg] 7.5 mg PO TID 12/05/20 [History Confirmed 12/05/20] Docusate Sodium [Stool Softener] 200 mg PO BID 12/05/20 [History Confirmed 12/05/20] Simethicone [Gas-X] 125 mg PO BID PRN 12/05/20 [History Confirmed 12/05/20] Allergies/Adverse Reactions: Allergies Allergy/AdvReac Type Severity Reaction Status Date / Time No Known Drug Allergies Allergy Verified 12/04/20 18:10 - Past Medical History Past Medical History: Yes Neurological History: No Pertinent History ENT History: No Pertinent History Cardiac History: Other Respiratory History: No Pertinent History Endocrine Medical History: No Pertinent History Musculoskelatal History: No Pertinent History GI Medical History: Diverticulosis History: No Pertinent History Pyscho-Social History: No Pertinent History Reproductive Disorders: No Pertinent History Comment: hx of SVT. Diverticulitist with perforation with colostomy placement on 11/07/2020 - Female History Are you now?: No - Past Surgical History Past Surgical History: Yes Neuro Surgical History: No Pertinent History Cardiac History: No Pertinent History Respiratory Surgery: No Pertinent History GI Surgical History: Colon Resection Genitourinary Surgical Hx: No Pertinent History Musculskeletal Surgical Hx: No Pertinent History Female Surgical History: Tubal Ligation, Other Other Surgical History: Diverticulitist with perforation with colostomy placement on 11/07/2020. Ectopic with removal of left tube and ovary - Social History Smoking Status: Current every day smoker Exposure to second hand smoke: Yes Alcohol: None Drug Use: none - Physical Exam Vital Signs: Vital Signs - 24 hr Temp Pulse Pulse Resp BP BP Pulse Ox 12/05/20 12:00 97.9 F 74 16 106/64 96 12/05/20 07:32 96.0 F 80 16 106/68 96 12/05/20 05:42 90 18 97 12/05/20 04:45 98.1 F 92 H 16 108/70 97 12/05/20 04:06 89 106/78 97 12/05/20 03:01 87 104/73 98 12/05/20 02:30 99 12/05/20 02:20 96 H 106/71 99 12/05/20 02:00 186 H 22 90/44 99 12/05/20 01:59 97.9 F 176 H 176 H 20 85/66 97 General Appearance: no apparent distress, anxiety Neurologic Exam: alert, oriented x 3, cooperative Respiratory Exam: normal breath sounds, lungs clear, crackles/rales, No chest tenderness, No respiratory distress Cardiovascular Exam: regular rate/rhythm, normal heart sounds Gastrointestinal/Abdomen Exam: soft, tenderness, other (hyerpactive bowel sounds ostomy with formed stools.) Extremity Exam: No pedal edema, No swelling, No tenderness Skin Exam: normal color, warm, dry, No rash Wound Assessment: Skin/Wound Assessment Wound/Incision Assessment Start: 12/05/20 05:30 Text: Status: Active Freq: Q6H Protocol: Document 12/05/20 08:00 OSWALD (Rec: 12/05/20 08:42 OSWALD [id number]) Wound/Incision Assessment Left Lower Abdomen Wound Assessment Shift Assessment Wound Type OSTOMY WOUND Wound Stage Non Pressure Wound Comment UNABLE TO ASSESS WOUND, OSTOMY APPLIANCE ON AT THIS TIME Results - Labs Lab/Micro Results: Lab Results-Last 24 Hours 12/05/20 Range/Units 02:50 Influenza Type A Ag NEGATIVE (NEGATIVE) Influenza Type B Ag NEGATIVE (NEGATIVE) RSV (PCR) NEGATIVE (Negative) SARS-CoV-2 (PCR) NEGATIVE (NEGATIVE) Hospital Summary - Vitals & Intake/Output Vital Signs: Vital Signs Temperature 97.9 F 12/05/20 12:00 Pulse Rate 74 12/05/20 12:00 Respiratory Rate 16 12/05/20 12:00 Blood Pressure 106/64 12/05/20 12:00 O2 Sat by Pulse Oximetry 96 12/05/20 12:00 Intake & Output: Intake & Output 12/03/20 12/04/20 12/05/20 12/06/20 11:59 11:59 11:59 11:59 Intake Total 440 Balance 440 Weight 69.8 kg - Lab Lab Results-Last 24 Hrs: Lab Results-Last 24 Hours 12/05/20 Range/Units 02:50 Influenza Type A Ag NEGATIVE (NEGATIVE) Influenza Type B Ag NEGATIVE (NEGATIVE) RSV (PCR) NEGATIVE (Negative) SARS-CoV-2 (PCR) NEGATIVE (NEGATIVE) - Procedures and Test Procedures and Tests throughout Hospitalization: Therapy Orders & Screens 12/05/20 04:36 Oxygen Nasal Cannula 2 lpm Comment: 12/05/20 05:41 Respiratory Therapy Assessment DAILY Comment: Diagnosis: Paroxysmal SVT - Discharge Disposition: Home, Self-Care Condition: Stable Prescriptions: Continue Diltiazem HCl [Diltiazem 12Hr ER] 1 cap PO DAILY Hydrocodone/Acetaminophen [Hydrocodone-Acetamin 7.5-325] 1 tab PO BID PRN Apixaban [Eliquis] 2.5 mg PO BID Magnesium Oxide 400 mg [Mag-Ox 400] 400 mg PO BID 30 Days #60 tablet Buspirone HCl 5 mg [Buspar 5 mg] 7.5 mg PO TID Docusate Sodium [Stool Softener] 200 mg PO BID Simethicone [Gas-X] 125 mg PO BID PRN Instructions: Supraventricular Tachycardia (SVT) Additional Instructions: KEEP SCHEDULED CARDIOLOGY APPT WITH DR SOMMER ON DECEMBER 12 AT 11 AM AT [facility]. Follow up with: TRENT MAYO NP [Primary Care Provider] - Forms: Discharge Instructions
[2020-12-05 16:03] VITALS: BP 106/64; PULSE 74
== END 2020-12-05 13:00 | disposition home or self-care (01) ==
LOC: ED 01:46 → MED SURG 04:25
PROVIDERS: ADMIT Family Medicine; ATTEND Family Medicine
DX: I47.1 Supraventricular tachycardia (principal); Z79.899 Other long term (current) drug therapy; Z79.01 Long term (current) use of anticoagulants; Z86.711 Personal history of pulmonary embolism; Z20.828 Contact with and (suspected) exposure to other viral communicable diseases; Z93.3 Colostomy status
CPT/HCPCS: 0241U; 94760; 96360; 96374; 99284; G0378; J0153; J2405; A9270-GY

== ENCOUNTER 2021-03-23 04:01 | Emergency (ER) | payer OTHER ==
[2021-03-23] MEDS ORDERED: Sodium Chloride 0.9% 1000 ML 1,000 ML IV STA (04:16)
[2021-03-23] MEDS ORDERED: Adenocard IV 6 MG/2 ML IV ONE ×4 (04:16→04:58)
--- NOTE | 2021-03-23 04:16 | ERPHSYRPT ---
- History of Present Illness Source: patient, family Exam Limitations: no limitations Timing/Duration: today Activities at Onset: none Quality: other (no pain) Chest Pain Radiation: no radiation Severity of Pain-Max: none Severity of Pain-Current: none Modifying Factors: Improves With: nothing Nitro Today/Relief: no nitro taken today Aspirin Treatment Today: no aspirin today Associated Symptoms: denies symptoms Prior Chest Pain/Cardiac Workup: no prior chest pain Hx Influenza Vaccination/Date Given: Yes Hx Pneumococcal Vaccination/Date Given: No <BETHEL VUONG - Last Filed: 03/23/21 06:37> <BIBICHARLEENELSON - Last Filed: 03/23/21 09:31> - History of Present Illness Time Seen by Provider: 03/23/21 04:12 Physician History: pt has hx of recurring SVT and is sceduled for ablation Tx soon. NO CP. No N/V. Had recent colostomy takedown for prior perforation of colon divertic recently. chest clear. abd soft nontender. diet lizzie well. (BETHEL VUONG) Allergies/Adverse Reactions: No Known Drug Allergies Allergy (Verified 03/23/21 04:36) Home Medications: Diltiazem HCl [Diltiazem 12Hr ER] 1 cap PO DAILY 11/29/20 [History] Apixaban [Eliquis] 2.5 mg PO BID 12/04/20 [History] Buspirone HCl 5 mg [Buspar 5 mg] 7.5 mg PO TID 12/05/20 [History] Oxycodone HCl/Acetaminophen [Oxycodone-Acetaminophen 5-325] 1 each PO Q6H PRN 03/23/21 [History] Travel Risk - Vaccine Status Have you recieved a Covid-19 vaccination: No <BETHEL VUONG - Last Filed: 03/23/21 06:37> - Review of Systems Constitutional: No Fever, No Chills Eyes: No Symptoms Ears, Nose, & Throat: No Symptoms Respiratory: No Cough, No Dyspnea Cardiac: Palpitations, No Chest Pain, No Edema, No Syncope Abdominal/Gastrointestinal: No Abdominal Pain, No Nausea, No Vomiting, No Diarrhea Genitourinary Symptoms: No Dysuria Musculoskeletal: No Back Pain, No Neck Pain Skin: No Rash Neurological: No Dizziness, No Focal Weakness, No Sensory Changes Psychological: No Symptoms Endocrine: No Symptoms All Other Systems: Reviewed and Negative <BETHEL VUONG - Last Filed: 03/23/21 06:37> - Past Medical History Pertinent Past Medical History: Yes Neurological History: No Pertinent History ENT History: No Pertinent History Cardiac History: Other Respiratory History: No Pertinent History Endocrine Medical History: No Pertinent History Musculoskeletal History: No Pertinent History GI Medical History: Diverticulosis History: No Pertinent History Psycho-Social History: No Pertinent History Female Reproductive Disorders: No Pertinent History Other Medical History: hx of SVT. Diverticulitist with perforation with colostomy placement on 11/07/2020 - Past Surgical History Past Surgical History: Yes Neuro Surgical History: No Pertinent History Cardiac: No Pertinent History Respiratory: No Pertinent History Gastrointestinal: Colon Resection Genitourinary: No Pertinent History Musculoskeletal: No Pertinent History Female Surgical History: Tubal Ligation, Other Other Surgical History: Diverticulitist with perforation with colostomy placement on 11/07/2020. Ectopic with removal of left tube and ovary - Social History Smoking Status: Current every day smoker Exposure to second hand smoke: Yes Drug Use: none Patient Lives Alone: No <BETHEL VUONG - Last Filed: 03/23/21 06:37> - Physical Exam General Appearance: no apparent distress, alert Eye Exam: PERRL/EOMI, eyes nml inspection Ears, Nose, Throat Exam: normal ENT inspection, moist mucous membranes Neck Exam: normal inspection, non-tender, supple Respiratory Exam: normal breath sounds, lungs clear, No respiratory distress Cardiovascular Exam: regular rate/rhythm, normal heart sounds, tachycardia, No edema Gastrointestinal/Abdomen Exam: soft, No tenderness, No mass Pelvic Exam: deferred Rectal Exam: deferred Back Exam: normal inspection, No CVA tenderness, No vertebral tenderness Extremity Exam: normal inspection, normal range of motion Neurologic Exam: alert, oriented x 3, cooperative, normal mood/affect, nml cerebellar function, sensation nml, No motor deficits Skin Exam: normal color, warm, dry Lymphatic Exam: No adenopathy <LOYD VUONGH DOLLY - Last Filed: 03/23/21 06:37> - Nursing Vital Signs Nursing Vital Signs: Initial Vital Signs Temperature 98.9 F 03/23/21 04:38 Pulse Rate 186 H 03/23/21 04:38 Respiratory Rate 26 H 03/23/21 04:38 Blood Pressure 111/76 03/23/21 04:38 O2 Sat by Pulse Oximetry 100 03/23/21 04:38 Pain Scale Pain Intensity 0 - Course Nursing assessment & vital signs reviewed: Yes EKG Interpreted by Me: Sinus Tach, Non-specific ST Changes <BETHEL VUONG - Last Filed: 03/23/21 06:37> - CT Exams Abdomen/Pelvis CT Interpretation: Tele-radiologist Report <MACHONELSON - Last Filed: 03/23/21 09:31> Ordered Tests: Active Orders 24 hr Category Date Time Status Content Director STAT Care 03/23/21 04:17 Active EKG-ER Only STAT Care 03/23/21 04:16 Active IV Insertion STAT Care 03/23/21 04:16 Active Pulse Oximetry (ED) STAT Care 03/23/21 04:16 Active ABDOMEN AND PELVIS W CONTRAST [CT] Stat Exams 03/23/21 05:12 Taken CHEST WITH CONTRAST [CT] Stat Exams 03/23/21 05:11 Taken CBC W DIFF Stat Lab 03/23/21 04:39 Completed CMP Stat Lab 03/23/21 04:39 Completed D-DIMER QUANTITATIVE Stat Lab 03/23/21 04:39 Completed Lactic Acid Stat Lab 03/23/21 04:20 Completed NT PRO BNP Stat Lab 03/23/21 04:39 Completed TROPONIN Q3H Lab 03/23/21 04:39 Completed TROPONIN Q3H Lab 03/23/21 07:40 Completed TROPONIN Q3H Lab 03/23/21 10:30 Ordered TROPONIN Q3H Lab 03/23/21 13:30 Ordered TROPONIN Q3H Lab 03/23/21 16:30 Ordered UA W/RFX UR CULTURE Stat Lab 03/23/21 05:30 Completed Medication Summary Generic Name Dose Route Start Last Admin Trade Name Freq PRN Reason Stop Dose Admin Diltiazem HCl 100 mls @ 5 mls/hr 03/23/21 05:01 03/23/21 05:05 Cardizem Drip 100 Mg/100 Ml D5w IV 04/22/21 05:00 5 mg/hr .Q20H PRN 5 mls/hr HEART RATE/ A-FIB Administration Protocol 5 MG/HR Piperacillin Sod/Tazobactam 100 mls @ 200 mls/hr 03/23/21 09:27 Sod 4.5 gm/ Sodium Chloride IV 03/23/21 09:56 STAT ONE Lorazepam 1 mg 03/23/21 09:27 Ativan 2 Mg/1 Ml Vial IV 03/23/21 09:28 STAT ONE Discontinued Medications Generic Name Dose Route Start Last Admin Trade Name Karloq PRN Reason Stop Dose Admin Adenosine 6 mg 03/23/21 04:16 03/23/21 04:27 Adenocard Iv 6 Mg/2 Ml IV 03/23/21 04:17 6 mg STAT ONE Administration Adenosine Confirm 03/23/21 04:23 Adenocard Iv 6 Mg/2 Ml Administered 03/23/21 04:24 Dose 6 mg IV .STK-MED ONE Adenosine Confirm 03/23/21 04:48 Adenocard Iv 6 Mg/2 Ml Administered 03/23/21 04:49 Dose 6 mg IV .STK-MED ONE Adenosine 3 mg 03/23/21 04:58 03/23/21 05:01 Adenocard Iv 6 Mg/2 Ml IV 03/23/21 04:59 3 mg STAT ONE Administration Sodium Chloride 1,000 mls @ 999 mls/hr 03/23/21 04:16 03/23/21 06:12 Sodium Chloride 0.9% 1000 Ml IV 03/23/21 05:16 Infused .Q1H1M STA Infusion Sodium Chloride Confirm 03/23/21 04:32 Sodium Chloride 0.9% 1000 Ml Administered 03/23/21 04:33 Dose 1,000 mls @ ud .ROUTE .STK-MED ONE Diltiazem HCl Confirm 03/23/21 04:57 Cardizem Drip 100 Mg/100 Ml D5w Administered 03/23/21 04:58 Dose 100 mls @ ud IV .STK-MED ONE Ceftriaxone Sodium/Dextrose 1 g in 50 mls @ 100 mls/hr 03/23/21 05:02 03/23/21 06:11 Rocephin 1 Gm-D5w 50 Ml Bag IV 03/23/21 05:31 Infused STAT STA Infusion Ceftriaxone Sodium/Dextrose Confirm 03/23/21 05:02 Rocephin 1 Gm-D5w 50 Ml Bag Administered 03/23/21 05:03 Dose 1 g in 50 mls @ ud IV .STK-MED ONE Magnesium Sulfate/Dextrose 100 mls @ 200 mls/hr 03/23/21 06:28 03/23/21 06:39 Magnesium 1 Gm / 100 Ml D5w IV 03/23/21 06:57 200 mls/hr STAT ONE Administration Magnesium Sulfate/Dextrose Confirm 03/23/21 06:38 Magnesium 1 Gm / 100 Ml D5w Administered 03/23/21 06:39 Dose 100 mls @ ud IV .STK-MED ONE Lab/Rad Data: Laboratory Result Diagrams 03/23/21 04:39 03/23/21 04:39 Laboratory Results 03/23/21 03/23/21 03/23/21 Range/Units 07:40 05:30 04:39 WBC (4.0-10.5) K/mm3 RBC (4.1-5.4) M/mm3 Hgb (12.0-16.0) gm/dl Hct (35-47) % MCV (78-100) fl MCH (26-32) pg MCHC (32-36) g/dl RDW (11.5-14.0) % Plt Count (150-450) K/mm3 MPV (7.5-11.0) fl Gran % (36.0-66.0) % Eos # (Auto) (0-0.5) Absolute Lymphs (auto) (1.0-4.6) Absolute Monos (auto) (0.0-1.3) Lymphocytes % (24.0-44.0) % Monocytes % (0.0-12.0) % Eosinophils % (0.00-5.0) % Basophils % (0.0-0.4) % Absolute Granulocytes (1.4-6.9) Basophils # (0-0.4) D-Dimer (215-500) ng/mL Sodium (137-145) mmol/L Potassium (3.5-5.1) mmol/L Chloride (98-107) mmol/L Carbon Dioxide (22-30) mmol/L Anion Gap (5-15) MEQ/L BUN (7-17) mg/dL Creatinine (0.52-1.04) mg/dL Estimated GFR ML/MIN Glucose (74-106) mg/dL Lactic Acid (0.4-2.0) Calcium (8.4-10.2) mg/dL Total Bilirubin (0.2-1.3) mg/dL AST (14-36) U/L ALT (0-35) U/L Alkaline Phosphatase (38-126) U/L Troponin I 0.022 < 0.012 (0.000-0.034) ng/mL NT-Pro-B Natriuret Pep (0-450) pg/mL Serum Total Protein (6.3-8.2) g/dL Albumin (3.5-5.0) g/dL Urine Color STRAW (YELLOW) Urine Appearance CLEAR (CLEAR) Urine pH 7.0 (5-6) Ur Specific [place] 1.002 (1.005-1.025) Urine Protein NEGATIVE (Negative) Urine Ketones NEGATIVE (NEGATIVE) Urine Blood NEGATIVE (0-5) Catalino/ul Urine Nitrite NEGATIVE (NEGATIVE) Urine Bilirubin NEGATIVE (NEGATIVE) Urine Urobilinogen NEGATIVE (0-1) mg/dL Ur Leukocyte Esterase NEGATIVE (NEGATIVE) Urine WBC (Auto) NONE (0-5) /HPF Urine RBC (Auto) NONE (0-2) /HPF U Epithel Cells (Auto) NONE (FEW) /HPF Urine Bacteria (Auto) NONE (NEGATIVE) /HPF Urine Mucus (Auto) SLIGHT (NEGATIVE) /HPF Urine Culture Reflexed NO (NO) Urine Glucose NEGATIVE (NEGATIVE) mg/dL 03/23/21 03/23/21 03/23/21 Range/Units 04:39 04:39 04:39 WBC 16.3 H (4.0-10.5) K/mm3 RBC 4.75 (4.1-5.4) M/mm3 Hgb 12.9 (12.0-16.0) gm/dl Hct 40.8 (35-47) % MCV 85.9 (78-100) fl MCH 27.2 (26-32) pg MCHC 31.6 L (32-36) g/dl RDW 15.6 H (11.5-14.0) % Plt Count 417 (150-450) K/mm3 MPV 10.0 (7.5-11.0) fl Gran % 80.6 H (36.0-66.0) % Eos # (Auto) 0.43 (0-0.5) Absolute Lymphs (auto) 1.78 (1.0-4.6) Absolute Monos (auto) 0.95 (0.0-1.3) Lymphocytes % 10.9 L (24.0-44.0) % Monocytes % 5.8 (0.0-12.0) % Eosinophils % 2.6 (0.00-5.0) % Basophils % 0.1 (0.0-0.4) % Absolute Granulocytes 13.13 H (1.4-6.9) Basophils # 0.02 (0-0.4) D-Dimer 1043 H* (215-500) ng/mL Sodium 136 L (137-145) mmol/L Potassium 4.1 (3.5-5.1) mmol/L Chloride 98 (98-107) mmol/L Carbon Dioxide 28 (22-30) mmol/L Anion Gap 14.5 (5-15) MEQ/L BUN 10 (7-17) mg/dL Creatinine 0.68 (0.52-1.04) mg/dL Estimated GFR > 60.0 ML/MIN Glucose 129 H (74-106) mg/dL Lactic Acid (0.4-2.0) Calcium 9.6 (8.4-10.2) mg/dL Total Bilirubin 0.80 (0.2-1.3) mg/dL AST 25 (14-36) U/L ALT 26 (0-35) U/L Alkaline Phosphatase 93 (38-126) U/L Troponin I (0.000-0.034) ng/mL NT-Pro-B Natriuret Pep 45.6 (0-450) pg/mL Serum Total Protein 7.6 (6.3-8.2) g/dL Albumin 4.3 (3.5-5.0) g/dL Urine Color (YELLOW) Urine Appearance (CLEAR) Urine pH (5-6) Ur Specific [place] (1.005-1.025) Urine Protein (Negative) Urine Ketones (NEGATIVE) Urine Blood (0-5) Catalino/ul Urine Nitrite (NEGATIVE) Urine Bilirubin (NEGATIVE) Urine Urobilinogen (0-1) mg/dL Ur Leukocyte Esterase (NEGATIVE) Urine WBC (Auto) (0-5) /HPF Urine RBC (Auto) (0-2) /HPF U Epithel Cells (Auto) (FEW) /HPF Urine Bacteria (Auto) (NEGATIVE) /HPF Urine Mucus (Auto) (NEGATIVE) /HPF Urine Culture Reflexed (NO) Urine Glucose (NEGATIVE) mg/dL 03/23/21 Range/Units 04:20 WBC (4.0-10.5) K/mm3 RBC (4.1-5.4) M/mm3 Hgb (12.0-16.0) gm/dl Hct (35-47) % MCV (78-100) fl MCH (26-32) pg MCHC (32-36) g/dl RDW (11.5-14.0) % Plt Count (150-450) K/mm3 MPV (7.5-11.0) fl Gran % (36.0-66.0) % Eos # (Auto) (0-0.5) Absolute Lymphs (auto) (1.0-4.6) Absolute Monos (auto) (0.0-1.3) Lymphocytes % (24.0-44.0) % Monocytes % (0.0-12.0) % Eosinophils % (0.00-5.0) % Basophils % (0.0-0.4) % Absolute Granulocytes (1.4-6.9) Basophils # (0-0.4) D-Dimer (215-500) ng/mL Sodium (137-145) mmol/L Potassium (3.5-5.1) mmol/L Chloride (98-107) mmol/L Carbon Dioxide (22-30) mmol/L Anion Gap (5-15) MEQ/L BUN (7-17) mg/dL Creatinine (0.52-1.04) mg/dL Estimated GFR ML/MIN Glucose (74-106) mg/dL Lactic Acid 1.1 (0.4-2.0) Calcium (8.4-10.2) mg/dL Total Bilirubin (0.2-1.3) mg/dL AST (14-36) U/L ALT (0-35) U/L Alkaline Phosphatase (38-126) U/L Troponin I (0.000-0.034) ng/mL NT-Pro-B Natriuret Pep (0-450) pg/mL Serum Total Protein (6.3-8.2) g/dL Albumin (3.5-5.0) g/dL Urine Color (YELLOW) Urine Appearance (CLEAR) Urine pH (5-6) Ur Specific [place] (1.005-1.025) Urine Protein (Negative) Urine Ketones (NEGATIVE) Urine Blood (0-5) Catalino/ul Urine Nitrite (NEGATIVE) Urine Bilirubin (NEGATIVE) Urine Urobilinogen (0-1) mg/dL Ur Leukocyte Esterase (NEGATIVE) Urine WBC (Auto) (0-5) /HPF Urine RBC (Auto) (0-2) /HPF U Epithel Cells (Auto) (FEW) /HPF Urine Bacteria (Auto) (NEGATIVE) /HPF Urine Mucus (Auto) (NEGATIVE) /HPF Urine Culture Reflexed (NO) Urine Glucose (NEGATIVE) mg/dL - Progress Progress: improved, re-examined Air Movement: good Blood Culture(s) Obtained: No Antibiotics given: No Counseled pt/family regarding: lab results, diagnosis, need for follow-up <BETHEL VUONG - Last Filed: 03/23/21 06:37> - Progress Progress: improved, re-examined <NELSON GAINES - Last Filed: 03/23/21 09:31> - Progress Progress Note: 03/23/21 04:36 pt converted to mild sinus tachy after adenosine. 03/23/21 05:12 required second 3 mg dosing when recurred and now on cardizem drip. elevated WBC - given AB, elevated D dimer doing abd CT and chest PE protocol. 03/23/21 06:16 also there is some abd wall tenderness both anterior and around the old stomal site noted as the observation period continues. 03/23/21 06:[address] Gaines for final disposition with CT reads still pending at this time, pt also advised, and currently stable on lo grade tachy. (BETHEL VUONG) 03/23/21 09:29 CT scan of the abdomen and pelvis showed an ugly according the radiologist inflammatory process in the pelvis with some fluid collections. In addition the CTA of the chest was negative for pulmonary emboli. We did speak with Dr. Anthony her surgeon at he accepted her in transfer and we are awaiting a bed for placement. (NELSON GAINES) <BETHEL VUONG - Last Filed: 03/23/21 06:37> - Departure Departure Disposition: Transfer (And will be transferred to either [facility] or [facility] we are awaiting a call from the transfer center.) Critical Care Time: No <NELSON GAINES - Last Filed: 03/23/21 09:31> - Departure Clinical Impression: Paroxysmal SVT (supraventricular tachycardia), Anxiety, Acute pelvic inflam matory disease after procedure in female Condition: Stable Referrals: TRENT MAYO, CASE WORK AIDE [Primary Care Provider] -
[2021-03-23] MEDS ORDERED: Sodium Chloride 0.9% 1000 ML 1,000 ML ONE (04:32)
[2021-03-23 04:43] LABS: Absolute Neutrophil Ct (ANC) 13.13 (1.4-6.9); BASOPHIL % 0.1 % (0.0-0.4); Basophil (Absolute #) 0.02 (0-0.4); Eosinophil % 2.6 % (0.00-5.0); Eosinophil (Absolute #) 0.43 (0-0.5); Hematocrit 40.8 % (35-47); Hemoglobin 12.9 gm/dl (12.0-16.0); Lymphocyte (Absolute #) 1.78 (1.0-4.6); Lymphocytes % 10.9 % (24.0-44.0); Mean Cell Volume 85.9 fl (78-100); Mean Corpuscular Hemoglobin 27.2 pg (26-32); Mean Corpuscular Hgb Concent. 31.6 g/dl (32-36); Monocyte (Absolute #) 0.95 (0.0-1.3); Monocytes % 5.8 % (0.0-12.0); Neutrophil % 80.6 % (36.0-66.0); Platelet Count 417 K/mm3 (150-450); Red Blood Count 4.75 M/mm3 (4.1-5.4); Red Cell Distribution Width 15.6 % (11.5-14.0); White Blood Count 16.3 K/mm3 (4.0-10.5)
[2021-03-23] MEDS ORDERED: CARDIZEM DRIP 100 MG/100 ML D5W 100 ML IV ONE (04:57)
[2021-03-23] MEDS ORDERED: CARDIZEM DRIP 100 MG/100 ML D5W 100 ML IV PRN (05:01)
[2021-03-23] MEDS ORDERED: ROCEPHIN 1 Gm-D5w 50 ml Bag** 1 G/50 ML IVPB IV STA (05:02)
[2021-03-23] MEDS ORDERED: ROCEPHIN 1 Gm-D5w 50 ml Bag** 1 G/50 ML IVPB IV ONE (05:02)
[2021-03-23 05:03] LABS: ALBUMIN 4.3 g/dL (3.5-5.0); ALKALINE PHOSPHATASE 93 U/L (38-126); ANION GAP 14.5 MEQ/L (5-15); BLOOD UREA NITROGEN 10 mg/dL (7-17); CHLORIDE 98 mmol/L (98-107); Calcium 9.6 mg/dL (8.4-10.2); Carbon Dioxide 28 mmol/L (22-30); Creatinine 1 0.68 mg/dL (0.52-1.04); EST GLOMERULAR FILTRATION RATE > 60.0 ML/MIN; Glucose 129 mg/dL (74-106); NT PRO BNP 45.6 pg/mL (0-450); Potassium 4.1 mmol/L (3.5-5.1); SGOT/AST 25 U/L (14-36); SGPT/ALT 26 U/L (0-35); SODIUM 136 mmol/L (137-145); Total Protein 7.6 g/dL (6.3-8.2)
[2021-03-23 05:37] LABS: Appearance CLEAR (CLEAR); Bilirubin NEGATIVE (NEGATIVE); Blood NEGATIVE Ery/ul (0-5); Glucose NEGATIVE (NEGATIVE); Ketones NEGATIVE (NEGATIVE); Leukocyte Esterase NEGATIVE (NEGATIVE); Mucus SLIGHT /HPF (NEGATIVE); Nitrite NEGATIVE (NEGATIVE); Protein,Urine Dip NEGATIVE (Negative); Specific Gravity 1.002 (1.005-1.025); Urobilinogen NEGATIVE mg/dL (0-1)
[2021-03-23] MEDS ORDERED: Magnesium 1 Gm / 100 Ml D5W*** 100 ML IV ONE ×2 (06:28→06:38)
[2021-03-23] MEDS ORDERED: Zosyn INJ 4.5 GM in Sodium Chloride 100ML MINI-BAG PLUS 100 ML IV ONE ×2 (09:27→15:26)
[2021-03-23] MEDS ORDERED: Ativan 2 MG/1 ML VIAL IV ONE ×2 (09:27→13:19)
[2021-03-23] MEDS ORDERED: Ativan 2 MG/1 ML VIAL ONE ×2 (09:39→13:12)
[2021-03-23] MEDS ORDERED: Zosyn INJ IV ONE ×2 (09:40→15:36)
[2021-03-23] MEDS ORDERED: Sodium Chloride 100ML MINI-BAG PLUS 100 ML IV ONE ×2 (09:40→15:36)
[2021-03-23 18:12] VITALS: BP 118/87; PULSE 97; O2SAT 99
--- NOTE | 2021-03-23 20:56 | XRAY ---
Indication: Elevated d-dimer. History of pulmonary embolus. Multiple contiguous axial images obtained through the chest using 100 cc Isovue 370 contrast and PE protocol. Comparison: November 29, 2020. There is adequate opacification of the pulmonary arteries to include the lobar and segmental branches. No pulmonary embolus. Heart not enlarged. Aorta is normal in course and caliber. No pathologic mediastinal/hilar lymphadenopathy. Mild bilateral dependent atelectasis. No suspicious pulmonary mass, infiltrate, or effusion. Bony thorax intact. CT abdomen/pelvis reported separately. Impression:Negative pulmonary embolus. No new or acute cardiopulmonary abnormalities. Comment: Preliminary interpretation made by [facility]. No critical discrepancy.
--- NOTE | 2021-03-23 20:59 | XRAY ---
Indication: Abdomen tenderness. History ruptured diverticulum. Multiple contiguous axial images obtained through the abdomen and pelvis using 100 cc Isovue 370 contrast and PE protocol. Comparison: November 29, 2020. CT chest reported separately. Noncontrasted stomach and bowel loops are nonobstructed again with small duodenal diverticulum and left lower quadrant colostomy. There is now mild diffuse scattered colonic fecal debris throughout. Interval sigmoid resection. Pelvis demonstrates new moderate peritoneal fatty stranding and tiny free fluid. Also new bilateral pelvis walled off fluid collections, largest on the right measuring at least 4.0 x 4.7 cm. Left pelvis walled off fluid collection at least 3.7 x 2.9 cm. Postoperative hematoma/seroma versus abscesses are of primary consideration. No free air. Stable fatty hepatomegaly. Urinary bladder demonstrates new intraluminal air either from recent catheterizations versus gas-forming bacterial infection. Remaining gallbladder, pancreas, spleen, adrenal glands, kidneys, ureters, uterus and aorta are unremarkable. No pathologic retroperitoneal lymphadenopathy. Osseous structures intact again with bilateral L5 spondylolysis and grade 1-2 spondylolisthesis. Impression: 1. Status post sigmoid resection with new pelvic peritoneal fatty stranding and free fluid. New bilateral pelvis walled off fluid collections either postoperative hematoma/stroma versus abscesses. 2. New urinary bladder intraluminal air either iatrogenic versus gas-forming bacterial infection. 3. Again incidental fatty hepatomegaly duodenal diverticulum, and chronic bony findings. Comment: Preliminary interpretation made by [facility]. No critical discrepancy.
== END 2021-03-23 20:31 | disposition left against medical advice (07) ==
LOC: ED 04:01
DX: I47.1 Supraventricular tachycardia (principal); F41.9 Anxiety disorder, unspecified; N73.9 Female pelvic inflammatory disease, unspecified; Z98.890 Other specified postprocedural states
CPT/HCPCS: 36000; 36415; 71260; 74177; 80053; 81001; 83605; 83880; 84484; 85025; 85379; 93005; 93041; 94760; 96360; 96365; 96374; 96375; 96376; 99285; U0003; J0153; J0696; J2060; J2543; J3475

== ENCOUNTER 2021-06-16 22:57 | Emergency (ER) | payer OTHER | END 2021-06-16 23:55 | disposition left against medical advice (07) | LOC: ED 22:57 | DX: Z53.9 Procedure and treatment not carried out, unspecified reason (principal) | CPT/HCPCS: 99281 ==